=== PATIENT | female | born 1990 | race American Indian/Alaskan Native ===

== ENCOUNTER 2017-03-02 17:53 | Emergency (ER) | payer MEDICAID ==
[2017-03-02] MEDS ORDERED: Sodium Chloride 0.9% 10 ML Syringe FLUSH PRN (18:18)
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
[2017-03-02 19:07] LABS: CHLORIDE,CL 110 mmol/L (101-111); SODIUM,NA 142 mmol/L (135-145)
[2017-03-02 19:38] VITALS: BP 130/59
== END 2017-03-02 19:38 ==
LOC: DL.ED 17:53
DX: O9A.211 Injury, poisoning and certain other consequences of external causes complicating pregnancy, first trimester (principal); O99.311 Alcohol use complicating pregnancy, first trimester; O99.331 Smoking (tobacco) complicating pregnancy, first trimester; S90.411A Abrasion, right great toe, initial encounter; S60.511A Abrasion of right hand, initial encounter; Y04.8XXA Assault by other bodily force, initial encounter; F17.210 Nicotine dependence, cigarettes, uncomplicated; F10.129 Alcohol abuse with intoxication, unspecified; Y90.6 Blood alcohol level of 120-199 mg/100 ml
CPT/HCPCS: 36415; 76815; 80048; 80305; 81001; 81025; 84702; 85025; 99284; G0480; J7050

== ENCOUNTER 2017-07-19 00:46 | Inpatient (IN) | payer MEDICAID ==
[~2017-07-19 00:46] MED LIST: Acetaminophen 325 MG Tab PO PRN; Carboprost Tromethamine 250 MCG/1 ML Amp IM PRN; Lactated Ringers 500 ML IV ONE; Lidocaine 1% 30 ML SDV INJECT PRN; Methylergonovine 0.2 MG/1 ML Amp IM PRN; Misoprostol 25 MCG (1/4 of 100 MCG) Tab VAG PRN; Misoprostol 400 MCG (4 X 100 MCG TAB) RECTAL PRN; Ondansetron 4 MG/2 ML SDV IV PRN; Sodium Chloride 0.9% 10 ML Syringe FLUSH PRN
[2017-07-19] MEDS: Lactated Ringers 1,000 ML IV SCH ×2 (09:34→10:14)
[2017-07-19] MEDS ORDERED: fentaNYL 100 MCG/2 ML SDV ONE (09:53)
[2017-07-19] MEDS ORDERED: EPINEPHrine 1 MG/ML SDV ONE (09:54)
--- NOTE | 2017-07-19 09:59 | PN ---
DATE: 07/19/2017 SUBJECTIVE: The patient is now status post Cytotec x1. Feels contractions occasionally, was unable to receive a second dose of Cytotec due to the frequency of her contractions. OBJECTIVE: heart tones in the 130s range, felt to be reactive and reassuring. Tocometer reveals contractions as far as 5 to 6 minutes apart, and as close as 1.5 minutes together. Vaginal exam reveals her to be 4.5, almost 5 cm; 70% effaced; 0 to -1 station. Vertex suspected. Artificial rupture of membranes done with bulging bag of water noted and yielding copious amounts of clear fluid after discussion with patient. ASSESSMENT AND PLAN: Intrauterine 40 and 2/7 weeks, complicated by GBS negative, Rubella nonimmune, insufficient care, first trimester alcohol use, now status post Cytotec x1, artificial rupture of membranes, and continuing into labor. We will continue to follow clinically and closely. The patient understands and agrees with the above treatment and plan. [facility] /[id number]
--- NOTE | 2017-07-19 10:38 | PCM.PRNOTE ---
- Free Text/Narrative Note: Requested to provide analgesia to full term patient in severe pain. Upon entering the room, patient is lying on back complaining of severe abdominal pain and discomfort. Procedure was discussed with patient including adverse outcomes and expectations. Pt consented to analgesia, SAB/IT. Pt placed into a sitting position. Landmarks for SAB/IT were identified and marked. Back was prepped with betadine x3. A sterile, transparent, fenestrated drape was applied. Excess betadine was removed. Using 3 mL of a 1% lidocaine solution, a skin wheel was placed at the L3/L4 interspace. A 24 ga (4 inch) Pencan spinal needle was inserted until positive for CSF. Negative for heme or paresthesias. Injected fentanyl 20 mcg, sufentanil 10 mcg, and 11.25 mg of a 0.75% bupivacaine solution with an epi wash. Pt was placed left lateral position for approximately 20 minutes. There were zero complications or adverse outcomes. Will continue to monitor.
--- NOTE | 2017-07-19 10:53 | OBOUT ---
DATE: 07/19/2017 DATE AND TIME OF NST: DATE: 07/19/2017. TIME: 0120 hours to 0140 hours. REASON FOR NST: 1. Intrauterine at 40 and 2/7 weeks by 28 and 2/7 week ultrasound. 2. GBS negative. 3. Rubella nonimmune. 4. Insufficient care. 5. First trimester alcohol use. 6. G5, P3-0-1-3. NST INTERPRETATION: During this time period, heart tone baseline is approximately 125 to 130. There are at least two 15 x 15 beat per minute accelerations, making this strip reactive. It is also noted to be reassuring. Tocometer reveals potential of 2-3 contractions. ASSESSMENT: 1. Nonstress test, reactive and reassuring. 2. Tocometer with 2-3 contractions. PLAN: Please see admit history and physical which has been done through [facility] and updated today. Please see that documentation for further details. Of note, admit vitals blood pressure 126/80, heart rate 80, and patient feels afebrile. [facility] /[id number]
[2017-07-19] MEDS ORDERED: Zolpidem 5 MG Tab PO PRN (12:19)
[2017-07-19] MEDS ORDERED: Benzocaine/Menthol 20%-0.5% Spray 56 GM Canister TOP PRN (12:19)
[2017-07-19] MEDS ORDERED: Oxytocin 10 Units/1 ML SDV IM PRN (12:19)
[2017-07-19] MEDS ORDERED: Sodium Chloride 0.9% 10 ML Syringe FLUSH PRN (12:19)
[2017-07-19] MEDS ORDERED: Simethicone 80 MG Tab.Chew PO PRN (12:19)
[2017-07-19] MEDS ORDERED: Measles, Mumps & Rubella Vaccine 0.5 ML SDV SUBCUT ONE (12:19)
[2017-07-19] MEDS: Ibuprofen 800 MG Tab PO PRN ×2 (13:14→22:00)
[2017-07-19] MEDS: Docusate Sodium 100 MG Cap PO PRN (13:15)
[2017-07-19] MEDS ORDERED: Oxytocin/Normal Saline 30 UNIT/500 ML BAG IV SCH (13:30)
[2017-07-20] MEDS: Ibuprofen 800 MG Tab PO PRN ×2 (07:17→15:55)
[2017-07-20] MEDS: Docusate Sodium 100 MG Cap PO PRN ×2 (08:29→20:04)
[2017-07-20] MEDS: Prenatal Multivitamin with Calcium/Folic Acid/Iron Tab PO SCH (08:29)
[2017-07-21] MEDS: Prenatal Multivitamin with Calcium/Folic Acid/Iron Tab PO SCH (08:46)
[2017-07-21] MEDS: Ibuprofen 800 MG Tab PO PRN (08:46)
[2017-07-21] MEDS: Docusate Sodium 100 MG Cap PO PRN (08:46)
[2017-07-21 10:18] VITALS: BP 118/55
[2017-07-21] MEDS ORDERED: fentaNYL 100 MCG/2 ML SDV ITHECAL ONE (12:09)
--- NOTE | 2017-07-22 09:20 | PN ---
DATE: 07/20/2017 day #1. SUBJECTIVE: The patient is tolerating p.o., ambulating, urinating, passing flatus. OBJECTIVE: Vital Signs: Last set of vitals updated and listed in the chart. Temperature 97.8, heart 75, blood pressure 115/68, respiratory rate 16. Lungs: Clear to auscultation bilaterally. Heart: S1-S2. Regular rate and rhythm. Abdomen: Firm uterus -1 below umbilicus. Extremities: No peripheral edema. No calf pain. LABORATORY DATA: Today, white cell count 11.9, hemoglobin 10.1 compared to predelivery hemoglobin 11, platelets 191. ASSESSMENT: day #1 status post spontaneous vaginal delivery with LOP presentation. PLAN: We will continue to follow clinically and closely. Start iron today and possible discharge tomorrow. Discussed with the patient. She understands and agrees with the above treatment plan. [facility] /[id number]
--- NOTE | 2017-07-22 09:26 | DEL ---
DATE: 07/19/2017 PREOPERATIVE DIAGNOSES: 1. Intrauterine 40 and 2/7 weeks by 28 and 2/7 week ultrasound. 2. GBS negative. 3. Rubella nonimmune. 4. Insufficient care. 5. First trimester alcohol use. 6. G5, P3-0-1-3. POSTOPERATIVE DIAGNOSES: 1. Intrauterine 40 and 2/7 weeks by 28 and 2/7 week ultrasound- delivered. 2. GBS negative. 3. Rubella nonimmune. 4. Insufficient care. 5. First trimester alcohol use. 6. G5, P3-0-1-3. 7. LOP presentation. PROCEDURE PERFORMED: NST, Cytotec x1, artificial rupture of membranes, and subsequent spontaneous vaginal delivery. ANESTHESIA/ANALGESIA: The patient did receive an intrathecal in the first stage of labor. ESTIMATED BLOOD LOSS: 250 mL. FINDINGS: Female, Apgars 6 and 9, weight pending with LOP presentation noted with delivery. SUMMARY OF EVENTS: The patient is a 26-year-old, G5, P3-0-1-3 intrauterine at 40 and 2/7 weeks, admitted on the above date with the above diagnoses, underwent Cytotec x1, then subsequent artificial rupture of membranes, then went on to continue through labor and have a subsequent spontaneous vaginal delivery. I was called to the room as she was found to be complete. There were some decelerations audibly heard down into the 90s with cervical exam and contractions, and the patient was starting to have an urge to push and feeling contractions. Subsequently, I donned sterile gown and gloves. She started pushing with contractions. vertex was delivered in LOP presentation followed by rest of the infant without difficulty. Mouth and nares were suctioned. Cord was doubly clamped cut and was brought over to team. Then, approximately 10 mL of cord blood was obtained for labs. Placenta then delivered with gentle cord traction and fundal massage. Perineum, vagina, and perirectal areas were examined and noted to have bilateral periurethral abrasions, nonbleeding, non-repaired after discussion with the patient. Mother and are currently stable at the time of dictation. [facility] /[id number]
--- NOTE | 2017-07-22 09:35 | DISCH ---
ADMIT DIAGNOSES: 1. Intrauterine at 40 and 2/7 weeks by 28 and 2/7 week ultrasound. 2. GBS negative. 3. Rubella nonimmune. 4. Insufficient care. 5. First trimester alcohol use. 6. G5, P3-0-1-3. DISCHARGE DIAGNOSES: 1. Intrauterine at 40 and 2/7 weeks by 28 and 2/7 week ultrasound. 2. GBS negative. 3. Rubella nonimmune. 4. Insufficient care. 5. First trimester alcohol use. 6. G5, P3-0-1-3. 7. LOP presentation. PROCEDURE PERFORMED: NST, Cytotec x1, artificial rupture of membranes, and then subsequent spontaneous vaginal delivery per Dr. Turcios. HISTORY OF PRESENT ILLNESS: Please see H and P. SUMMARY OF HOSPITAL COURSE: The patient was admitted on the above date with the above diagnoses and underwent the above procedures, went on to have a spontaneous vaginal delivery yielding a female with Apgars 6 and 9, weighing 8 pounds 15 ounces. Please see delivery note for further details. day #1, please see progress note. day #2, date of discharge, the patient was tolerating p.o., ambulating, urinating, passing flatus, and requesting discharge. PHYSICAL EXAMINATION: Vital Signs: Last set of vitals are updated and listed in the chart. Temperature 98.4, heart rate 77, blood pressure 134/72, respiratory rate 16. Lungs: Clear to auscultation bilaterally. Heart: S1, S2. Regular rate and rhythm. Abdomen: Firm uterus -1 below umbilicus. No peripheral edema. No calf pain. DISCHARGE LABORATORY DATA: On day #1, labs were drawn with a white cell count of 11.19, hemoglobin 10.1, and platelets 191. CONDITION ON DISCHARGE COMPARED TO CONDITION ON ADMISSION: Improved. DISCHARGE INSTRUCTIONS: 1. Diet: As tolerated. 2. Activity: No lifting more than 20 pounds. No sit-ups or straining, and pelvic rest for the next 6 weeks with immediate return to fertility discussed with the patient. 3. Reasons to return or go the emergency room were discussed with the patient in detail including, but not limited to, temperature greater than 100.4, foul-smelling discharge, red hot tender breasts, or increased vaginal bleeding. DISCHARGE MEDICATIONS: 1. [id number] Tylenol or ibuprofen for pain. 2. vitamins x6 weeks. FOLLOWUP: Follow up in 6 weeks for visit. I did discuss the importance of followup and ramifications of not doing so as well as importance of followup with her infant and ramifications of not doing so. An appointment will be made for 2 days from now in regard to her unless jaundice is more concerning. The patient understands and agrees with the above treatment plan. [facility] /[id number]
== END 2017-07-21 12:10 | disposition home or self-care (01) | DRG 775 ==
LOC: DL.OBCHECK 00:46 → DL.OB 00:47 → EEVIPCON 12:05 → OBSVTOIN 12:05
PROVIDERS: ADMIT Family Medicine; ATTEND Family Medicine
PROC: 10E0XZZ Delivery of Products of Conception, External Approach (ICD-10-PCS; principal; 2017-07-19)
PROC: 3E0P7VZ Introduction of Hormone into Female Reproductive, Via Natural or Artificial Opening (ICD-10-PCS; 2017-07-19)
PROC: 10907ZC Drainage of Amniotic Fluid, Therapeutic from Products of Conception, Via Natural or Artificial Opening (ICD-10-PCS; 2017-07-19)
PROC: 00HU33Z Insertion of Infusion Device into Spinal Canal, Percutaneous Approach (ICD-10-PCS; 2017-07-19)
PROC: 3E0R3BZ Introduction of Anesthetic Agent into Spinal Canal, Percutaneous Approach (ICD-10-PCS; 2017-07-19)
DX: O32.8XX0 Maternal care for other malpresentation of fetus, not applicable or unspecified (principal); O99.334 Smoking (tobacco) complicating childbirth; Z37.0 Single live birth; O99.314 Alcohol use complicating childbirth; Z3A.40 40 weeks gestation of pregnancy
CPT/HCPCS: 01967; 36415; 59409; 80305; 85027; 90707; A9270-GY; J2405; J2590; J3010; J7120

== ENCOUNTER 2018-04-21 23:50 | Emergency (ER) | payer MEDICAID ==
[2018-04-21] MEDS ORDERED: Lidocaine 1% 30 ML SDV INJECT ONE (23:54)
[2018-04-22] MEDS ORDERED: Morphine 4 MG/ML Syringe IVPUSH ONE (00:07)
[2018-04-22] MEDS ORDERED: Diphtheria,Pertussis(Acell),Tetanus Vaccine 0.5 ML SDV IM ONE (00:07)
[2018-04-22] MEDS ORDERED: cefTRIAXone 1 GM Vial IVPUSH ONE (00:07)
[2018-04-22] MEDS ORDERED: Ondansetron 4 MG/2 ML SDV IV ONE (00:36)
[2018-04-22 00:50] LABS: ANION GAP 14.7; CHLORIDE,CL 107 mmol/L (101-111); SODIUM,NA 143 mmol/L (135-145)
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
[2018-04-22 01:17] VITALS: BP 116/73
== END 2018-04-22 01:47 ==
LOC: DL.ED 23:50
DX: S66.922A Laceration of unspecified muscle, fascia and tendon at wrist and hand level, left hand, initial encounter (principal); S60.212A Contusion of left wrist, initial encounter; F10.129 Alcohol abuse with intoxication, unspecified; Y90.7 Blood alcohol level of 200-239 mg/100 ml; Z23 Encounter for immunization; X58.XXXA Exposure to other specified factors, initial encounter
CPT/HCPCS: 36415; 73130; 80053; 80305; 84703; 85025; 90471; 90715; 96374; 96375; 99285; G0480; J0696; J2270; J2405

== ENCOUNTER 2023-02-17 20:14 | Inpatient (IN) | payer MEDICAID ==
[~2023-02-17 20:14] MED LIST changes: +Lactated Ringers 1,000 ML IV ONE; +Lactated Ringers 1,000 ML IV SCH; -Lactated Ringers 500 ML IV ONE; +Misoprostol 50 MCG (1/2 of 100 MCG) Tab VAG ONE; -Ondansetron 4 MG/2 ML SDV IV PRN; +Ondansetron 4 MG/2 ML SDV IVPUSH PRN; +Oxytocin/Normal Saline 30 UNIT/500 ML BAG IV SCH; +Tranexamic Acid 1,000 MG in Sodium Chloride 0.9% 100 ML IV PRN
[2023-02-17 20:34] LABS: HEMATOCRIT 36.8 % (37.0-47.0); HEMOGLOBIN 11.9 g/dL (12.0-16.0); MEAN CORPUSCULAR HEMOGLOBIN 27.9 pg (27.0-34.0); MEAN CORPUSCULAR HGB CONC 32.3 g/dL (33.0-35.0); MEAN CORPUSCULAR VOLUME 86.2 fL (80-100); RED BLOOD CELL COUNT 4.27 10^6/uL (4.2-5.4); WHITE BLOOD CELL COUNT,WBC 12.1 10^3/uL (5.0-10.0)
[2023-02-17] MEDS: Sodium Chloride 0.9% 10 ML Syringe FLUSH SCH ×2 (20:40→23:14)
[2023-02-17 20:51] LABS: BARBITURATES,URINE NEGATIVE (NEGATIVE); BENZODIAZEPINE,URINE NEGATIVE (NEGATIVE); MDMA (ECSTASY), URINE NEGATIVE (NEGATIVE); METHADONE,URINE NEGATIVE (NEGATIVE); METHAMPHETAMINES,URINE NEGATIVE (NEGATIVE); OPIATES,URINE NEGATIVE (NEGATIVE); PHENCYCLIDINE,URINE NEGATIVE (NEGATIVE); TCA,URINE NEGATIVE (NEGATIVE)
[2023-02-17 20:52] LABS: AMPHETAMINES,URINE NEGATIVE (NEGATIVE); OXYCODONE,URINE NEGATIVE (NEGATIVE)
[2023-02-18] MEDS ORDERED: Bupivacaine 0.25% 10 ML SDV INJECT ONE (03:47)
[2023-02-18] MEDS ORDERED: fentaNYL 100 MCG/2 ML SDV EPIDUR ONE (03:47)
[2023-02-18] MEDS ORDERED: fentaNYL 100 MCG/2 ML SDV ONE (03:47)
[2023-02-18] MEDS ORDERED: Bupivacaine 0.25% 10 ML SDV ONE (03:47)
[2023-02-18] MEDS ORDERED: Phenylephrine HCl In 0.9% NaCl 1 MG/10 ML Syringe IVPUSH PRN (04:05)
[2023-02-18] MEDS ORDERED: ePHEDrine 50 MG/ML SDV IVPUSH PRN (04:05)
[2023-02-18] MEDS ORDERED: Ropivacaine 200 MG in Premix Bag 1 BAG EPIDUR SCH (04:15)
[2023-02-18] MEDS ORDERED: Zolpidem 5 MG Tab PO PRN (05:27)
[2023-02-18] MEDS ORDERED: Ibuprofen 800 MG Tab PO PRN (05:27)
[2023-02-18] MEDS ORDERED: Sodium Chloride 0.9% 10 ML Syringe FLUSH PRN (05:27)
[2023-02-18] MEDS ORDERED: Oxytocin 10 Units/1 ML SDV IM PRN (05:27)
[2023-02-18] MEDS ORDERED: Simethicone 80 MG Tab.Chew PO PRN (05:27)
[2023-02-18] MEDS: Benzocaine/Menthol 20%-0.5% Spray 78 GM Cannister TOP PRN (11:27)
[2023-02-18] MEDS: Ferrous Sulfate 325 MG Tab PO SCH (11:28)
[2023-02-18] MEDS: Prenatal Multivitamin with Calcium/Folic Acid/Iron Tab PO SCH (11:28)
[2023-02-18] MEDS: Docusate Sodium 100 MG Cap PO PRN ×2 (11:28→22:03)
[2023-02-18] MEDS: Sodium Chloride 0.9% 10 ML Syringe FLUSH SCH ×2 (22:06→22:08)
[2023-02-19 06:42] LABS: HEMATOCRIT 34.4 % (37.0-47.0); MEAN CORPUSCULAR HEMOGLOBIN 27.8 pg (27.0-34.0); MEAN CORPUSCULAR VOLUME 86.9 fL (80-100); RED BLOOD CELL COUNT 3.96 10^6/uL (4.2-5.4); WHITE BLOOD CELL COUNT,WBC 11.1 10^3/uL (5.0-10.0)
[2023-02-19] MEDS ORDERED: Measles, Mumps & Rubella Vaccine 0.5 ML SDV SUBCUT ONE (09:00)
[2023-02-19] MEDS: Benzocaine/Menthol 20%-0.5% Spray 78 GM Cannister TOP PRN (11:59)
[2023-02-19] MEDS: Docusate Sodium 100 MG Cap PO PRN (11:59)
[2023-02-19] MEDS: Prenatal Multivitamin with Calcium/Folic Acid/Iron Tab PO SCH (11:59)
[2023-02-19] MEDS: Ferrous Sulfate 325 MG Tab PO SCH (11:59)
[2023-02-19 16:52] VITALS: BP 128/69; PULSE 62
== END 2023-02-19 12:45 | disposition home or self-care (01) | DRG 807 ==
LOC: DL.OBCHECK 20:14 → DL.OB 20:19 → UNDOADMIN 20:19 → DL.OB 02-18 05:19
PROVIDERS: ADMIT Family Medicine; ATTEND Family Medicine
PROC: 10E0XZZ Delivery of Products of Conception, External Approach (ICD-10-PCS; principal; 2023-02-18)
PROC: 10907ZC Drainage of Amniotic Fluid, Therapeutic from Products of Conception, Via Natural or Artificial Opening (ICD-10-PCS; 2023-02-18)
PROC: 3E0P7VZ Introduction of Hormone into Female Reproductive, Via Natural or Artificial Opening (ICD-10-PCS; 2023-02-18)
PROC: 3E0R3BZ Introduction of Anesthetic Agent into Spinal Canal, Percutaneous Approach (ICD-10-PCS; 2023-02-18)
PROC: 00HU33Z Insertion of Infusion Device into Spinal Canal, Percutaneous Approach (ICD-10-PCS; 2023-02-18)
DX: O71.82 Other specified trauma to perineum and vulva (principal); Z37.0 Single live birth; Z89.022 Acquired absence of left finger(s); Z98.890 Other specified postprocedural states; Z87.891 Personal history of nicotine dependence; Z3A.39 39 weeks gestation of pregnancy
CPT/HCPCS: 01967; 36415; 59409; 80305-QW; 85027; 90471; 90707; A9270-GY; J2405; J2590; J2795; J3010; J3490; J7120

== ENCOUNTER 2025-03-02 00:26 | Inpatient (IN) | payer MEDICAID ==
[~2025-03-02 00:26] MED LIST changes: -Acetaminophen 325 MG Tab PO PRN; -Lactated Ringers 1,000 ML IV ONE; -Lactated Ringers 1,000 ML IV SCH; -Lidocaine 1% 30 ML SDV INJECT PRN; -Methylergonovine 0.2 MG/1 ML Amp IM PRN; -Misoprostol 400 MCG (4 X 100 MCG TAB) RECTAL PRN; -Misoprostol 50 MCG (1/2 of 100 MCG) Tab VAG ONE; +Oxytocin/Lactated Ringers 30 UNIT/500 ML BAG IV SCH; -Oxytocin/Normal Saline 30 UNIT/500 ML BAG IV SCH; -Tranexamic Acid 1,000 MG in Sodium Chloride 0.9% 100 ML IV PRN; +fentaNYL 100 MCG/2 ML SDV IVPUSH PRN
[2025-03-02 00:58] LABS: PLATELET COUNT,PLT 223.0 10^3/uL (150-450); RED BLOOD CELL COUNT 4.05 10^6/uL (4.2-5.4); WHITE BLOOD CELL COUNT,WBC 8.6 10^3/uL (5.0-10.0)
[2025-03-02] MEDS: Penicillin G Potassium 5 MILLUNITS in Sodium Chloride 0.9% 100 ML IV ONE (01:06)
[2025-03-02] MEDS: Misoprostol 50 MCG (1/2 of 100 MCG) Tab PO SCH (01:16)
[2025-03-02] MEDS: Lactated Ringers 1,000 ML IV SCH (03:00)
[2025-03-02] MEDS ORDERED: Penicillin G Potassium 3 MILLUNITS in Sodium Chloride 0.9% 100 ML IV SCH (04:00)
[2025-03-02] MEDS: Penicillin G Potassium 3 MILLUNITS in Sodium Chloride 0.9% 100 ML IV SCH (05:05)
[2025-03-02] MEDS: Oxytocin/Normal Saline 30 UNIT/500 ML BAG IV SCH (07:36)
[2025-03-02] MEDS ORDERED: Sodium Chloride 0.9% 10 ML Syringe FLUSH PRN (12:06)
[2025-03-02] MEDS ORDERED: Oxytocin 10 Units/1 ML SDV IM PRN (12:06)
[2025-03-02] MEDS: Benzocaine/Menthol 20%-0.5% Spray 78 GM Cannister TOP PRN (15:52)
[2025-03-02] MEDS: Lactated Ringers 1,000 ML IV ONE (16:33)
[2025-03-03 05:54] LABS: PLATELET COUNT,PLT 197.0 10^3/uL (150-450); RED BLOOD CELL COUNT 3.99 10^6/uL (4.2-5.4); WHITE BLOOD CELL COUNT,WBC 9.8 10^3/uL (5.0-10.0)
[2025-03-03] MEDS: Prenatal Multivitamin with Calcium/Folic Acid/Iron Tab PO SCH (07:47)
[2025-03-03] MEDS: Measles, Mumps & Rubella Vaccine 0.5 ML SDV SUBCUT ONE (08:24)
[2025-03-03 08:46] VITALS: BP 119/61; PULSE 64
== END 2025-03-03 14:40 | disposition home or self-care (01) | DRG 807 ==
LOC: DL.OB 00:26 → OBSVTOIN 11:59 → DL.OB 11:59
PROVIDERS: ADMIT Family Medicine; ATTEND Family Medicine
PROC: 3E0234Z Introduction of Serum, Toxoid and Vaccine into Muscle, Percutaneous Approach (ICD-10-PCS; principal; 2025-03-02)
PROC: 10E0XZZ Delivery of Products of Conception, External Approach (ICD-10-PCS; principal; 2025-03-02)
PROC: 3E0DXGC Introduction of Other Therapeutic Substance into Mouth and Pharynx, External Approach (ICD-10-PCS; principal; 2025-03-02)
PROC: 3E0R3BZ Introduction of Anesthetic Agent into Spinal Canal, Percutaneous Approach (ICD-10-PCS; principal; 2025-03-02)
PROC: 10907ZC Drainage of Amniotic Fluid, Therapeutic from Products of Conception, Via Natural or Artificial Opening (ICD-10-PCS; principal; 2025-03-02)
DX: O99.824 Streptococcus B carrier state complicating childbirth (principal); Z37.0 Single live birth; Z3A.39 39 weeks gestation of pregnancy; Z23 Encounter for immunization; F17.200 Nicotine dependence, unspecified, uncomplicated; Z79.899 Other long term (current) drug therapy
CPT/HCPCS: 36415; 51702; 59025; 59409; 85027; 90471; 90707; A9270-GY; J2540; J2590; J7120